=== PATIENT | male | born 1945 | race Caucasian/White ===

== ENCOUNTER 2024-08-02 14:11 | Outpatient (CLI) | payer MEDICARE, OTHER | END 2024-08-02 14:12 | disposition home or self-care (01) | LOC: ULT 14:11 | PROVIDERS: ATTEND Family Medicine | DX: R94.5 Abnormal results of liver function studies (principal); K76.0 Fatty (change of) liver, not elsewhere classified; N28.1 Cyst of kidney, acquired | CPT/HCPCS: 76700 ==

== ENCOUNTER 2024-09-17 02:37 | Emergency (ER) | payer MEDICARE, OTHER ==
[2024-09-17] MEDS ORDERED: Lidocaine 4% Patch ONE (03:01)
[2024-09-17] MEDS ORDERED: predniSONE 20 MG TAB ONE (03:01)
== END 2024-09-17 03:42 | disposition home or self-care (01) ==
LOC: ERS 02:37
DX: M25.512 Pain in left shoulder (principal); I10 Essential (primary) hypertension; E11.9 Type 2 diabetes mellitus without complications; Z79.82 Long term (current) use of aspirin; Z79.84 Long term (current) use of oral hypoglycemic drugs; Z79.899 Other long term (current) drug therapy
CPT/HCPCS: 99283; J7512